=== PATIENT | male | born 1985 | race Caucasian/White ===

== ENCOUNTER 2017-09-05 10:39 | Emergency (ER) | payer OTHER ==
[~2017-09-05] VITALS: Ht 170.2 cm; Wt 70.9 kg
[2017-09-05] MEDS ORDERED: BECL10.62 IH (11:21)
[2017-09-05] MEDS ORDERED: HYDR-305 PO (11:21)
[2017-09-05] MEDS ORDERED: VENL-67 PO (11:21)
[2017-09-05] MEDS ORDERED: ALBU8HFA PUFF (11:21)
[2017-09-05] MEDS ORDERED: LEVE500T53 PO (11:21)
[2017-09-05] MEDS ORDERED: CLON2 PO (11:21)
[2017-09-05] MEDS ORDERED: OMEP20 PO (11:21)
[2017-09-05] MEDS ORDERED: HYDR25TA PO (11:21)
[2017-09-05 13:17] VITALS: BP 131/89
== END 2017-09-05 13:40 | disposition home or self-care (01) ==
LOC: EMS 10:41
DX: F41.9 Anxiety disorder, unspecified (principal); I10 Essential (primary) hypertension; J45.909 Unspecified asthma, uncomplicated; K21.9 Gastro-esophageal reflux disease without esophagitis; F17.210 Nicotine dependence, cigarettes, uncomplicated; Z76.0 Encounter for issue of repeat prescription; Z88.8 Allergy status to other drugs, medicaments and biological substances
CPT/HCPCS: 99283